=== PATIENT | male | born 1950 | race Hispanic/Latino ===

== ENCOUNTER 2020-07-09 08:37 | Day surgery (SDC) | payer MEDICARE ==
[2020-07-03 13:31] LABS: BASOPHILS % (AUTO) 0.5 % (0.0-5.0); EOSINOPHILS % (AUTO) 0.9 % (0.0-8.0); HEMATOCRIT 45.1 % (42-54); LYMPHOCYTES % (AUTO) 33.3 % (21.0-51.0); MEAN CORPUSCULAR HEMOGLOBIN 28.1 pg (27.0-33.0); MEAN CORPUSCULAR HGB CONC 32.6 g/dL (32.0-36.0); MEAN CORPUSCULAR VOLUME 86.1 fL (79-99); MONOCYTES % (AUTO) 9.1 % (3.0-13.0); PLATELET COUNT (AUTO) 174 K/uL (130-400); RED BLOOD CELL COUNT(AUTO) 5.24 MIL/uL (4.50-6.20); RED CELL DISTRIBUTION WIDTH 15.5 % (11.0-15.5); WHITE BLOOD COUNT (AUTO) 5.7 K/uL (4.8-10.8)
[2020-07-03 13:44] LABS: CREATININE 0.7 mg/dL (0.5-1.5); POTASSIUM 4.7 mmol/L (3.5-5.1)
[2020-07-07 11:27] VITALS: BP 134/72
[~2020-07-09] VITALS: Ht 170.2 cm; Wt 83.1 kg
[2020-07-09] VITALS (18 sets, daily range): BP systolic 106–136; BP diastolic 60–71
[~2020-07-09 08:37] MED LIST: ASPI-1026 PO; DAPA10TA PO; INSU100I24 SQ; SITA1TAB6 PO
[2020-07-09] MEDS ORDERED: SODIUM CHLORIDE 0.9% 1000ML 1,000 ML IV ONE (09:07)
[2020-07-09] MEDS: CEFAZOLIN SODIUM 1 GM VIAL IVP SCH ×2 (09:10→12:50)
[2020-07-09] MEDS ORDERED: BACITRACIN 28.4 GM OINT TP ONE (12:26)
[2020-07-09] MEDS ORDERED: BUPIVACAINE/PF 0.25% 30ML VIAL IJ ONE (12:26)
[2020-07-09] MEDS ORDERED: MIDAZOLAM HCL 1 MG/ML 2ML VIAL ONE (12:38)
[2020-07-09] MEDS ORDERED: LIDOCAINE PF 100MG/5ML (2%) SYRINGE 5ML ONE (12:38)
[2020-07-09] MEDS ORDERED: PROPOFOL 10 MG/ML 20ML VIAL IV ONE (12:38)
[2020-07-09] MEDS ORDERED: PHENYLEPHRINE HCL 10 MG/ML 1ML VIAL IV ONE (12:48)
[2020-07-09] MEDS ORDERED: FENTANYL CITRATE PF 50 MCG/1 ML 2ML VIAL ONE (12:55)
== END 2020-07-09 15:40 | disposition home or self-care (01) ==
LOC: DAH 08:37
PROVIDERS: ATTEND Urology
DX: N47.1 Phimosis (principal); Z20.822 Contact with and (suspected) exposure to COVID-19; I10 Essential (primary) hypertension; E78.5 Hyperlipidemia, unspecified; E11.9 Type 2 diabetes mellitus without complications
CPT/HCPCS: 36415; 54161; 71045; 80048; 82948 ×2; 85025; 87635; 93005; A4215; A4221; A4222; A4223; A4335; A4600; A4663; A6260; C9803; J0690; J2001; J2250; J2370; J2704; J3010; J3490; J7030 ×2